=== PATIENT | female | born 1980 | race Caucasian/White ===

== ENCOUNTER 2017-10-09 09:55 | Outpatient (CLI) | payer OTHER ==
[2017-10-10] MEDS ORDERED: TERBUTALINE SULF5 MG PO (09:07)
== END 2017-10-10 09:14 | disposition home or self-care (01) ==
LOC: OBS/DEL 09:55
DX: O60.02 Preterm labor without delivery, second trimester (principal); O34.12 Maternal care for benign tumor of corpus uteri, second trimester; D25.9 Leiomyoma of uterus, unspecified; Z34.82 Encounter for supervision of other normal pregnancy, second trimester